=== PATIENT | male | born 1955 | race Caucasian/White ===

== ENCOUNTER 2018-07-27 16:51 | Emergency (ER) | payer OTHER ==
[2018-07-27] MEDS: LORAZEPAM 2 MG INJ IM ×2 (18:37→20:33)
== END 2018-07-28 05:30 | disposition home or self-care (01) ==
LOC: E/R 16:51
DX: F10.920 Alcohol use, unspecified with intoxication, uncomplicated (principal); S00.81XA Abrasion of other part of head, initial encounter; I10 Essential (primary) hypertension; I25.2 Old myocardial infarction; R94.02 Abnormal brain scan; X58.XXXA Exposure to other specified factors, initial encounter; Y92.9 Unspecified place or not applicable
CPT/HCPCS: 70450; 72125; 96372; 99285-25